=== PATIENT | female | born 1985 | race Caucasian/White ===

== ENCOUNTER 2019-03-18 20:46 | Emergency (ER) | payer OTHER ==
[2019-03-18 21:00] VITALS: BP 141/77
[2019-03-18] MEDS ORDERED: HYDROcodone/ACETAMIN 5-325 MG* 1 TAB PO ONE ×2 (21:12)
--- NOTE | 2019-03-18 21:12 | UC ---
Ear Complaint HPI - HPI Summary HPI Summary: The patient is a 33-year-old female who has been ill for about 3 days. She has had nasal congestion postnasal drip and cough. She denies any fever or chills. She has had bilateral ear pain. She has been taking ibuprofen for the past 3 days. Tonight she tried to do a nasal irrigation. She had the acute worsening of left ear pain. She has very little little hearing out of the left ear. She denies any otorrhea. She has not had any significant ear problems in the past. She states she did have an ear infection about 4 years ago. SHe has taken lortabs and percocet in the past without problems - History of Current Complaint Chief Complaint: UCEar Stated Complaint: ear ACHE Time Seen by Provider: 03/18/19 20:50 Hx Obtained From: Patient Onset/Duration: Gradual Onset, Lasting Days, Worse Since - x hours Severity Initially: Mild Severity Currently: Severe Pain Intensity: 8 Pain Scale Used: 0-10 Numeric Associated Signs/Symptoms: Positive: Hearing Loss - left ear, URI Symptoms - Allergies/Home Medications Allergies/Adverse Reactions: Allergies Allergy/AdvReac Type Severity Reaction Status Date / Time morphine Allergy Hives Verified 03/18/19 21:00 Sulfa (Sulfonamide Allergy Hives Verified 03/18/19 21:00 Antibiotics) Home Medications: Home Medications Ibuprofen 400 mg PO ONCE 03/18/19 [History Confirmed 03/18/19] Levothyroxine TAB* [Synthroid TAB*] 75 mcg PO 0800 03/18/19 [History Confirmed 03/18/19] diphenhydrAMINE HCl [Benadryl Allergy] 50 mg PO ONCE 03/18/19 [History Confirmed 03/18/19] PMH/Surg Hx/FS Hx/Imm Hx Previously Healthy: Yes - Surgical History Surgical History: Yes Surgery Procedure, Year, and Place: lt oopherectomy and salpenjectomy, 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, colorectal prolapserepair - Family History Known Family History: Positive: Hypertension, Non-Contributory - Social History Alcohol Use: None Substance Use Type: None Smoking Status (MU): Never Smoked Tobacco Review of Systems All Other Systems Reviewed And Are Negative: Yes Constitutional: Positive: Negative Skin: Positive: Negative Eyes: Positive: Negative ENT: Positive: Sore Throat, Ear Ache, Nasal Discharge, Sinus Congestion, Sinus Pain/Tenderness Respiratory: Positive: Cough Cardiovascular: Positive: Negative Gastrointestinal: Positive: Negative Genitourinary: Positive: Negative Motor: Positive: Negative Neurovascular: Positive: Negative Musculoskeletal: Positive: Negative Neurological: Positive: Negative Psychological: Positive: Negative Physical Exam Triage Information Reviewed: Yes Appearance: Well-Nourished, Pain Distress Vital Signs: Initial Vital Signs Temp 100.4 F 03/18/19 20:53 Pulse 93 03/18/19 20:53 Resp 18 03/18/19 20:53 BP 141/77 03/18/19 20:53 Pulse Ox 100 03/18/19 20:53 Vital Signs Reviewed: Yes Eyes: Positive: Conjunctiva Clear ENT: Positive: Pharyngeal erythema, Nasal congestion, TM bulging - L>R, TM red - bilat, Sinus tenderness - mild, Uvula midline. Negative: Hearing grossly normal - decreaed hearing left, Nasal drainage, Tonsillar swelling, Tonsillar exudate Dental Exam: Normal Neck: Positive: Supple, Nontender, No Lymphadenopathy Respiratory: Positive: Lungs clear, Normal breath sounds, No respiratory distress Cardiovascular: Positive: RRR, No Murmur Musculoskeletal: Positive: ROM Intact, No Edema Neurological: Positive: Alert Psychological Exam: Normal Skin Exam: Normal Ear Complaint Course/Dx - Differential Dx/Diagnosis Provider Diagnosis: Otitis media of both ears, Elevated BP without diagnosis of hypertension Discharge ED - Sign-Out/Discharge Documenting (check all that apply): Patient Departure All imaging exams completed and their final reports reviewed: No Studies - Discharge Plan Condition: Stable Disposition: HOME Prescriptions: Amoxicillin PO (*) [Amoxicillin 875 MG (*)] 875 mg PO BID #20 tab Patient Education Materials: Ear Infection (ED) Referrals: No Primary Care Phys,NOPCP [Primary Care Provider] - Additional Instructions: I suggest you keep your appt at [facility] tomorrow if not improved recheck in 2-3 weeks of not better - Billing Disposition and Condition Condition: STABLE Disposition: Home
[2019-03-18] MEDS ORDERED: Amoxicillin PO (*) 500 MG CAP PO ONE (21:14)
== END 2019-03-18 21:36 | disposition home or self-care (01) ==
LOC: UCEAST 20:46
DX: H66.93 Otitis media, unspecified, bilateral (principal); R03.0 Elevated blood-pressure reading, without diagnosis of hypertension; R09.81 Nasal congestion; R09.82 Postnasal drip; J02.9 Acute pharyngitis, unspecified; R05 Cough; Z88.5 Allergy status to narcotic agent; Z88.2 Allergy status to sulfonamides
CPT/HCPCS: 99213; A9270-GY; G0463